=== PATIENT | female | born 1955 | race Caucasian/White ===

== ENCOUNTER 2017-07-11 19:28 | Emergency (ER) | payer OTHER ==
[~2017-07-11] VITALS: Ht 165.1 cm; Wt 77.1 kg
[~2017-07-11 19:28] MED LIST: AMOXICILLIN PO; DICLOFENAC PO; FLEXERIL10 M1 PO
[2017-07-11] MEDS ORDERED: LIDEX 0.05% CR15 GM EXT (19:49)
[2017-07-11] MEDS ORDERED: TRIAMCINOLONE A15 G2 EXT (19:49)
[2017-07-11] MEDS ORDERED: RETIN-A45 G2 TOP (19:50)
[2017-07-11] MEDS ORDERED: VITAMIN D350000 UNIT PO (19:51)
[2017-07-11] MEDS ORDERED: AMLODIPINE BESYL5 MG PO (19:51)
[2017-07-11] MEDS ORDERED: PRINIVIL20 M1 PO (19:51)
[2017-07-11] MEDS ORDERED: LASIX20 MG PO (19:52)
[2017-07-11] MEDS ORDERED: IBUPROFEN PO (19:53)
== END 2017-07-11 21:20 | disposition home or self-care (01) ==
LOC: SED 19:28
DX: H10.9 Unspecified conjunctivitis (principal); R21 Rash and other nonspecific skin eruption; Z88.5 Allergy status to narcotic agent; Z79.899 Other long term (current) drug therapy
CPT/HCPCS: 99283